=== PATIENT | female | born 1980 | race Caucasian/White ===

== ENCOUNTER 2025-03-30 19:42 | Emergency (ER) | payer BC, SELFPAY ==
[2025-03-30] VITALS (9 sets, daily range): BP systolic 0–109; BP diastolic 0–75; PULSE 0–178; RESP 0–117; TEMP -17.7–36.2; O2SAT 0–99
[2025-03-30] MEDS: 0.9% Normal Saline (1000mL) 1,000 ML 999 ML IV ×4 (19:49)
[2025-03-30] MEDS: Calcium Gluconate IV 1 GM in 0.9% Normal Saline (100mL Bag) 100 ML IV (20:22)
[2025-03-30] MEDS: TRANEXAMIC ACID 1,000 MG in 0.9% Normal Saline (100mL Bag) 100 ML 280 MG IV (20:22)
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
--- NOTE | 2025-03-30 21:48 | ED.RN ---
2024: TIME OF CALLED BY PRIMARY PROVIDER. EVENS Cleveland DO
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
--- NOTE | 2025-03-30 22:12 | ED.RN ---
TWO UNITS OF TRAUMA BLOOD GIVEN TO PATIENT SEE CODE BLUE DOCUMENTATION
[2025-04-03 15:57] LABS: Bedside Glucose 231 mg/dL (74-106)
== END 2025-03-30 23:56 ==
PROVIDERS: Emergency Provider Emergency Medicine; Visit Provider Emergency Medicine
DX: T14.90XA Injury, unspecified, initial encounter (principal); I46.8 Cardiac arrest due to other underlying condition; V43.52XA Car driver injured in collision with other type car in traffic accident, initial encounter
CPT/HCPCS: 31500; 36430; 51702; 82962; 86850; 86900; 86901; 86920; 86921; 92950; 96361; 96374; 96375; 99285; P9016; A4216; J0612